=== PATIENT | male | born 1945 | race Caucasian/White ===

== ENCOUNTER 2022-03-27 13:43 | Inpatient (IN) | payer OTHER, MEDICAID ==
[2022-03-27 14:07] LABS: #Eosinphils 0.1 10x3/uL (0.0-0.5); #Monocytes 0.7 10x3/uL (0.0-1.1); #Neutrophils 7.2 10x3/uL (1.5-8.4); %Basophils 0.4 % (0.0-2.0); %Eosinophils 0.6 % (0.0-6.0); %Lymphocytes 19.6 % (18.0-47.0); %Monocytes 6.6 % (0.0-10.0); %Neutrophils 72.5 % (40.0-75.0); Hemoglobin 15.2 g/dL (13.5-17.5); Mean Corpuscular HGB CONC 34.2 g/dL (32.0-36.0); Mean Corpuscular Hemoglobin 32.8 pg (27.0-33.0); Mean Corpuscular Volume 95.7 fl (81.2-95.1); Mean Platelet Volume 9.7 fl (7.4-10.4); Platelet Count 169 10x3/uL (150-450); RBC Distribution Width 13.1 % (11.5-14.5); Red Blood Cell (RBC) Count 4.64 10x6/uL (4.32-5.72); White Blood Cell (WBC) Count 9.9 10x3/uL (3.5-10.5)
[2022-03-27] MEDS ORDERED: Lorazepam 2 MG/ML VIAL ONE ×3 (14:11→19:35)
[2022-03-27 14:21] LABS: ALT (SGPT) 16 U/L (8-55); AST (SGOT) 24 U/L (5-34); Acetaminophen Less than 10.0 mcg/mL (10.0-30.0); Albumin 4.3 g/dL (3.4-4.8); Alcohol Less than 10 mg/dL (Less than 10); Alkaline Phosphatase 57 U/L (40-110); Anion Gap 17 mmol/L (10-20); BUN (Urea Nitrogen) 29 mg/dL (8.4-25.7); CK (CPK) 136 U/L (30-200); Calc. Creatinine Clearance 0 mL/min (70-130); Carbon Dioxide 25 mmol/L (23-31); Chloride 103 mmol/L (98-107); Estimated GFR 68; Globulin 3.3 g/dL (2.4-3.5); Glucose 115 mg/dL (83-110); Lipase 14 U/L (8-78); Protein, Total 7.6 g/dL (5.8-8.1); Salicylate Less than 8.0 mg/dL (15.0-30.0); Sodium 141 mmol/L (136-145)
[2022-03-27 14:42] LABS: INR-International Normal Ratio 1.5; PTT 35.9 sec (22.0-33.0); Prothrombin Time 16.2 sec (9.5-12.1)
[2022-03-27] MEDS ORDERED: Ketamine 50 MG/ML (10ML VIAL) ONE (14:57)
[2022-03-27] MEDS ORDERED: Aspirin 325 MG TAB ONE (15:40)
[2022-03-27] MEDS ORDERED: hydrALAZINE 20 MG/ML VIAL SLOW IVP PRN (15:44)
[2022-03-27] MEDS ORDERED: Labetalol HCl 100 MG/20 ML VIAL SLOW IVP PRN (15:44)
[2022-03-27] MEDS ORDERED: Senokot S 8.6-50 MG TAB PO PRN (15:50)
[2022-03-27] MEDS ORDERED: Loperamide HCl 2 MG CAP PO PRN ×2 (15:50)
[2022-03-27] MEDS ORDERED: Ondansetron PF 4 MG/2 ML Vial IVP PRN (15:50)
[2022-03-27] MEDS ORDERED: Ondansetron ODT 4 MG TAB PO PRN (15:50)
[2022-03-27] MEDS ORDERED: Acetaminophen 650 MG Suppository PR PRN (15:50)
[2022-03-27] MEDS ORDERED: Bisacodyl 5 MG TAB PO PRN (15:50)
[2022-03-27 15:53] LABS: Bilirubin Neg (Negative); Blood, Urine 50 (Negative); Clarity Clear (Clear); Glucose, Urine (Dipstick) >=1000 mg/dL (Negative); Ketone, Urine 5 mg/dL (Negative); Leukocyte Negative (Negative); Nitrite Negative (Negative); Protein, Urine (Dipstick) Negative (Neg-Trace); Urobilinogen Normal mg/dL (Less than 2)
[2022-03-27 16:01] LABS: Amphetamine Not Detected (NotDetected); Bacteria/HPF None Seen HPF (None Seen); Barbiturates Screen Not Detected (NotDetected); Benzodiazepine Screen Not Detected (NotDetected); Cocaine Metabolite Screen Not Detected (NotDetected); Methadone Not Detected (NotDetected); Methamphetamine Not Detected (NotDetected); Opiate Screen Not Detected (NotDetected); Oxycodone Screen Not Detected (NotDetected); Phencyclidine (PCP) Not Detected (NotDetected); Squamous Epithelial None Seen HPF (0-3); THC/Cannabinoid Screen Not Detected (NotDetected); Tricyclic Screen Not Detected (NotDetected); WBC/HPF None Seen HPF (0-3)
[2022-03-27 16:40] LABS: Syphilis Antibody Nonreactive (Nonreactive); Syphilis Antibody Index 0.13 S/CO (<1.00 Non-Reactive)
[2022-03-27 17:06] LABS: SARS-CoV-2 NAA Rapid Test Not Detected (NotDetected)
[2022-03-27 19:02] LABS: Hemoglobin 14.6 g/dL (13.5-17.5); Platelet Count 143 10x3/uL (150-450)
[2022-03-27 19:11] LABS: Anion Gap 16 mmol/L (10-20); BUN (Urea Nitrogen) 26 mg/dL (8.4-25.7); Calc. Creatinine Clearance 0 mL/min (70-130); Carbon Dioxide 20 mmol/L (23-31); Chloride 107 mmol/L (98-107); Estimated GFR 90; Glucose 83 mg/dL (83-110); Potassium 3.9 mmol/L (3.5-5.1); Sodium 139 mmol/L (136-145)
[2022-03-27 19:13] LABS: Digoxin 0.43 ng/mL (0.8-2.0)
[2022-03-27 19:19] LABS: Troponin I Less than 0.010 ng/mL (< 0.028)
[2022-03-27 22:41] VITALS: BMI 21.3
[2022-03-27] MEDS ORDERED: Enoxaparin Sodium 40 MG/0.4 ML SYRINGE SC SCH (23:00)
[2022-03-27] MEDS ORDERED: Sacubitril 49 MG/Valsartan 51 MG TABLET PO SCH (23:00)
[2022-03-27] MEDS ORDERED: Carvedilol 6.25 MG TAB PO SCH (23:00)
[2022-03-27] MEDS ORDERED: Atorvastatin Calcium 40 MG TAB PO SCH (23:00)
[2022-03-27] MEDS ORDERED: Famotidine/PF 20 mg/2ml Vial SLOW IVP SCH (23:00)
[2022-03-27] MEDS ORDERED: Ziprasidone 20 MG VIAL IM SCH (23:15)
[2022-03-27] MEDS ORDERED: Sterile Water 10 ML ONE (23:45)
[2022-03-27 23:47] LABS: Troponin I Less than 0.010 ng/mL (< 0.028)
[2022-03-28] MEDS ORDERED: Ziprasidone 20 MG VIAL IM SCH ×2 (01:15→18:30)
[2022-03-28] MEDS ORDERED: Sterile Water 10 ML ONE ×2 (01:17)
[2022-03-28] MEDS ORDERED: Dextrose 5%-Lactated Ringers 1,000 ML IV SCH (01:45)
[2022-03-28 09:06] LABS: #Basophils 0.1 10x3/uL (0.0-0.2); #Eosinphils 0.1 10x3/uL (0.0-0.5); #Monocytes 0.8 10x3/uL (0.0-1.1); #Neutrophils 6.6 10x3/uL (1.5-8.4); %Basophils 0.6 % (0.0-2.0); %Eosinophils 0.8 % (0.0-6.0); %Lymphocytes 15.5 % (18.0-47.0); %Neutrophils 73.7 % (40.0-75.0); Hemoglobin 16.2 g/dL (13.5-17.5); Mean Corpuscular HGB CONC 34.5 g/dL (32.0-36.0); Mean Corpuscular Hemoglobin 32.5 pg (27.0-33.0); Mean Platelet Volume 9.4 fl (7.4-10.4); Platelet Count 139 10x3/uL (150-450); RBC Distribution Width 13.2 % (11.5-14.5); Red Blood Cell (RBC) Count 4.99 10x6/uL (4.32-5.72); White Blood Cell (WBC) Count 8.9 10x3/uL (3.5-10.5)
[2022-03-28 09:37] LABS: Anion Gap 14 mmol/L (10-20); BUN (Urea Nitrogen) 20 mg/dL (8.4-25.7); Calc. Creatinine Clearance 82 mL/min (70-130); Calcium 9.2 mg/dL (7.8-10.44); Carbon Dioxide 21 mmol/L (23-31); Chloride 110 mmol/L (98-107); Estimated GFR 92; Glucose 80 mg/dL (83-110); Potassium 4.4 mmol/L (3.5-5.1); Sodium 141 mmol/L (136-145)
[2022-03-28 09:43] LABS: Cardiac Risk 3.2 (Less than 4.5)
[2022-03-28] MEDS: Enoxaparin Sodium 40 MG/0.4 ML SYRINGE SC SCH (09:43)
[2022-03-28] MEDS: Digoxin 0.125 MG TAB PO SCH (09:43)
[2022-03-28] MEDS: Carvedilol 6.25 MG TAB PO SCH ×2 (09:43→17:26)
[2022-03-28] MEDS: Famotidine/PF 20 mg/2ml Vial SLOW IVP SCH ×2 (09:43→21:31)
[2022-03-28] MEDS: Aspirin 81 mg Enteric Coated Tablet PO SCH (09:43)
[2022-03-28] MEDS: Aspirin 300 MG Suppository PR SCH (09:43)
[2022-03-28] MEDS: Sacubitril 49 MG/Valsartan 51 MG TABLET PO SCH ×2 (09:47→21:31)
[2022-03-28] MEDS ORDERED: Iopamidol 370 76% 100 ML VIAL ONE (12:15)
[2022-03-28 15:54] LABS: ALT (SGPT) 14 U/L (8-55); AST (SGOT) 28 U/L (5-34); Albumin 3.8 g/dL (3.4-4.8); Alkaline Phosphatase 49 U/L (40-110); Bilirubin, Direct 0.5 mg/dL (0.1-0.3)
[2022-03-28] MEDS: Dextrose 5 % And 0.9 % NaCl 1,000 ML IV SCH (17:26)
[2022-03-28] MEDS ORDERED: Lorazepam 2 MG/ML VIAL SLOW IVP SCH (18:30)
[2022-03-28] MEDS ORDERED: Lorazepam 2 MG/ML VIAL SLOW IVP PRN (19:22)
[2022-03-28 19:51] LABS: Hemoglobin A1c 5.2 % (4.0-6.0)
[2022-03-28] MEDS ORDERED: levETIRAcetam in NS 500 MG in Premix Bag 1 BAG IVPB SCH (21:00)
[2022-03-28] MEDS: levETIRAcetam 500 MG/5 ML VIAL SLOW IVP SCH (21:31)
[2022-03-28] MEDS: Atorvastatin Calcium 40 MG TAB PO SCH (21:31)
[2022-03-29 06:49] LABS: #Eosinphils 0.1 10x3/uL (0.0-0.5); #Monocytes 0.6 10x3/uL (0.0-1.1); #Neutrophils 7.1 10x3/uL (1.5-8.4); %Basophils 0.4 % (0.0-2.0); %Eosinophils 1.1 % (0.0-6.0); %Lymphocytes 11.4 % (18.0-47.0); %Monocytes 7.2 % (0.0-10.0); %Neutrophils 79.7 % (40.0-75.0); Hemoglobin 14.6 g/dL (13.5-17.5); Mean Corpuscular Hemoglobin 32.7 pg (27.0-33.0); Mean Corpuscular Volume 93.3 fl (81.2-95.1); Mean Platelet Volume 9.4 fl (7.4-10.4); Platelet Count 143 10x3/uL (150-450); RBC Distribution Width 13.1 % (11.5-14.5); Red Blood Cell (RBC) Count 4.47 10x6/uL (4.32-5.72); White Blood Cell (WBC) Count 8.9 10x3/uL (3.5-10.5)
[2022-03-29 07:08] LABS: ALT (SGPT) 13 U/L (8-55); AST (SGOT) 39 U/L (5-34); Albumin 3.5 g/dL (3.4-4.8); Alkaline Phosphatase 50 U/L (40-110); Anion Gap 13 mmol/L (10-20); BUN (Urea Nitrogen) 16 mg/dL (8.4-25.7); Calc. Creatinine Clearance 84 mL/min (70-130); Calcium 8.9 mg/dL (7.8-10.44); Carbon Dioxide 21 mmol/L (23-31); Chloride 110 mmol/L (98-107); Estimated GFR 93; Globulin 2.8 g/dL (2.4-3.5); Glucose 88 mg/dL (83-110); Magnesium 1.7 mg/dL (1.6-2.6); Protein, Total 6.3 g/dL (5.8-8.1); Sodium 140 mmol/L (136-145)
[2022-03-29] MEDS: Enoxaparin Sodium 40 MG/0.4 ML SYRINGE SC SCH (09:03)
[2022-03-29] MEDS: Aspirin 81 mg Enteric Coated Tablet PO SCH (09:03)
[2022-03-29] MEDS: levETIRAcetam 500 MG/5 ML VIAL SLOW IVP SCH ×2 (09:03→22:08)
[2022-03-29] MEDS: Digoxin 0.125 MG TAB PO SCH (09:03)
[2022-03-29] MEDS: Dextrose 5 % And 0.9 % NaCl 1,000 ML IV SCH ×2 (09:03→09:29)
[2022-03-29] MEDS: Carvedilol 6.25 MG TAB PO SCH ×2 (09:03→17:24)
[2022-03-29] MEDS: Sacubitril 49 MG/Valsartan 51 MG TABLET PO SCH ×2 (09:04→23:40)
[2022-03-29] MEDS: Aspirin 300 MG Suppository PR SCH (09:04)
[2022-03-29] MEDS: Famotidine/PF 20 mg/2ml Vial SLOW IVP SCH ×2 (09:04→21:56)
[2022-03-29] MEDS ORDERED: Midazolam HCl 2 mg/2 ml Vial SLOW IVP SCH (13:45)
[2022-03-29] MEDS ORDERED: Ziprasidone 20 MG VIAL IM SCH (14:00)
[2022-03-29] MEDS ORDERED: Diazepam 10 MG/2 ML SYRINGE IVP SCH (15:00)
[2022-03-29] MEDS: Acetaminophen 325 MG TAB PO PRN (17:24)
[2022-03-29] MEDS: Nicotine 21 MG PATCH TD SCH (18:38)
[2022-03-29] MEDS ORDERED: levETIRAcetam 500 MG/5 ML VIAL ONE ×3 (21:46→21:47)
[2022-03-29] MEDS: Atorvastatin Calcium 40 MG TAB PO SCH (23:40)
[2022-03-30 04:51] LABS: #Basophils 0.1 10x3/uL (0.0-0.2); #Eosinphils 0.1 10x3/uL (0.0-0.5); #Monocytes 0.6 10x3/uL (0.0-1.1); #Neutrophils 5.5 10x3/uL (1.5-8.4); %Basophils 0.7 % (0.0-2.0); %Eosinophils 1.8 % (0.0-6.0); %Lymphocytes 13.5 % (18.0-47.0); %Monocytes 7.6 % (0.0-10.0); %Neutrophils 76.3 % (40.0-75.0); Hemoglobin 13.1 g/dL (13.5-17.5); Mean Corpuscular HGB CONC 34.8 g/dL (32.0-36.0); Mean Corpuscular Hemoglobin 32.8 pg (27.0-33.0); Mean Platelet Volume 9.8 fl (7.4-10.4); Platelet Count 143 10x3/uL (150-450); White Blood Cell (WBC) Count 7.3 10x3/uL (3.5-10.5)
[2022-03-30 05:04] LABS: ALT (SGPT) 15 U/L (8-55); AST (SGOT) 45 U/L (5-34); Albumin 3.2 g/dL (3.4-4.8); Alkaline Phosphatase 44 U/L (40-110); Anion Gap 12 mmol/L (10-20); BUN (Urea Nitrogen) 17 mg/dL (8.4-25.7); Calc. Creatinine Clearance 86 mL/min (70-130); Calcium 8.7 mg/dL (7.8-10.44); Carbon Dioxide 20 mmol/L (23-31); Chloride 113 mmol/L (98-107); Estimated GFR 93; Globulin 2.5 g/dL (2.4-3.5); Glucose 81 mg/dL (83-110); Magnesium 1.6 mg/dL (1.6-2.6); Potassium 3.9 mmol/L (3.5-5.1); Protein, Total 5.7 g/dL (5.8-8.1); Sodium 141 mmol/L (136-145)
[2022-03-30] MEDS: Dextrose 5 % And 0.9 % NaCl 1,000 ML IV SCH (05:46)
[2022-03-30] MEDS ORDERED: levETIRAcetam 500 MG/5 ML VIAL ONE (08:13)
[2022-03-30] MEDS ORDERED: Valproate Sodium 500 MG in Sodium Chloride 0.9% 100 ML IVPB SCH (09:00)
[2022-03-30] MEDS: LACOSAMIDE IVPB SCH ×2 (10:00→20:48)
[2022-03-30] MEDS: Famotidine/PF 20 mg/2ml Vial SLOW IVP SCH ×2 (10:00→20:16)
[2022-03-30] MEDS: Aspirin 81 mg Enteric Coated Tablet PO SCH (10:00)
[2022-03-30] MEDS: Digoxin 0.125 MG TAB PO SCH (10:00)
[2022-03-30] MEDS: SODIUM CHLORIDE IVPB SCH ×2 (10:00→20:48)
[2022-03-30] MEDS: Sacubitril 49 MG/Valsartan 51 MG TABLET PO SCH ×2 (10:00→20:16)
[2022-03-30] MEDS: ADMIXTURE FEE IVPB SCH ×2 (10:00→20:48)
[2022-03-30] MEDS: Enoxaparin Sodium 40 MG/0.4 ML SYRINGE SC SCH (10:01)
[2022-03-30] MEDS: Carvedilol 6.25 MG TAB PO SCH ×2 (10:01→16:49)
[2022-03-30] MEDS: Aspirin 300 MG Suppository PR SCH (10:01)
[2022-03-30] MEDS: cefTRIAXone\\ROCEPHIN 2 GM in Sodium Chloride 0.9% 100 ML IVPB SCH (11:35)
[2022-03-30] MEDS: Acetaminophen 325 MG TAB PO PRN ×2 (11:43→21:04)
[2022-03-30] MEDS: Diazepam 10 MG/2 ML SYRINGE IVP PRN (13:54)
[2022-03-30] MEDS: Nicotine 21 MG PATCH TD SCH (16:48)
[2022-03-30] MEDS: Atorvastatin Calcium 40 MG TAB PO SCH (20:16)
[2022-03-30] MEDS: Apixaban 5 MG TAB PO SCH (20:16)
[2022-03-31] MEDS: Diazepam 10 MG/2 ML SYRINGE IVP PRN (00:07)
[2022-03-31] MEDS: Dextrose 5 % And 0.9 % NaCl 1,000 ML IV SCH (02:45)
[2022-03-31] MEDS ORDERED: Ziprasidone 20 MG VIAL IM SCH (04:00)
[2022-03-31] MEDS ORDERED: Sterile Water 10 ML VIAL FS PRN (04:00)
[2022-03-31] MEDS ORDERED: Sterile Water 10 ML ONE (04:03)
[2022-03-31] MEDS ORDERED: Ziprasidone 20 MG VIAL ONE (04:04)
[2022-03-31] MEDS ORDERED: Ondansetron PF 4 MG/2 ML Vial IVP PRN (04:11)
[2022-03-31 06:30] LABS: #Eosinphils 0.2 10x3/uL (0.0-0.5); #Monocytes 0.5 10x3/uL (0.0-1.1); #Neutrophils 3.9 10x3/uL (1.5-8.4); %Basophils 0.6 % (0.0-2.0); %Eosinophils 3.3 % (0.0-6.0); %Lymphocytes 15.4 % (18.0-47.0); %Monocytes 9.1 % (0.0-10.0); %Neutrophils 71.4 % (40.0-75.0); Mean Corpuscular HGB CONC 34.1 g/dL (32.0-36.0); Mean Corpuscular Hemoglobin 31.9 pg (27.0-33.0); Mean Corpuscular Volume 93.4 fl (81.2-95.1); Mean Platelet Volume 9.9 fl (7.4-10.4); Platelet Count 119 10x3/uL (150-450); RBC Distribution Width 13.2 % (11.5-14.5); Red Blood Cell (RBC) Count 4.08 10x6/uL (4.32-5.72); White Blood Cell (WBC) Count 5.4 10x3/uL (3.5-10.5)
[2022-03-31 06:48] LABS: ALT (SGPT) 15 U/L (8-55); AST (SGOT) 39 U/L (5-34); Alkaline Phosphatase 42 U/L (40-110); Anion Gap 11 mmol/L (10-20); BUN (Urea Nitrogen) 13 mg/dL (8.4-25.7); CK (CPK) 396 U/L (30-200); Calc. Creatinine Clearance 88 mL/min (70-130); Calcium 8.5 mg/dL (7.8-10.44); Carbon Dioxide 23 mmol/L (23-31); Chloride 111 mmol/L (98-107); Estimated GFR 94; Globulin 2.6 g/dL (2.4-3.5); Glucose 91 mg/dL (83-110); Magnesium 1.5 mg/dL (1.6-2.6); Potassium 3.6 mmol/L (3.5-5.1); Protein, Total 5.6 g/dL (5.8-8.1); Sodium 141 mmol/L (136-145)
[2022-03-31] MEDS: Apixaban 5 MG TAB PO SCH ×2 (09:24→21:30)
[2022-03-31] MEDS: Aspirin 300 MG Suppository PR SCH (09:24)
[2022-03-31] MEDS: Aspirin 81 mg Enteric Coated Tablet PO SCH (09:24)
[2022-03-31] MEDS: Carvedilol 6.25 MG TAB PO SCH ×2 (09:24→19:18)
[2022-03-31] MEDS: SODIUM CHLORIDE IVPB SCH ×2 (09:25→21:28)
[2022-03-31] MEDS: LACOSAMIDE IVPB SCH ×2 (09:25→21:28)
[2022-03-31] MEDS: Famotidine/PF 20 mg/2ml Vial SLOW IVP SCH ×2 (09:25→21:30)
[2022-03-31] MEDS: Sacubitril 49 MG/Valsartan 51 MG TABLET PO SCH ×2 (09:25→21:30)
[2022-03-31] MEDS: Digoxin 0.125 MG TAB PO SCH (09:25)
[2022-03-31] MEDS: ADMIXTURE FEE IVPB SCH ×2 (09:25→21:28)
[2022-03-31] MEDS ORDERED: Iopamidol 300 61% 100 ML VIAL FS ONE (10:20)
[2022-03-31] MEDS: cefTRIAXone\\ROCEPHIN 2 GM in Sodium Chloride 0.9% 100 ML IVPB SCH (11:00)
[2022-03-31] MEDS: Azithromycin 250 MG TAB PO SCH (11:00)
[2022-03-31] MEDS: Nicotine 21 MG PATCH TD SCH (19:17)
[2022-03-31] MEDS: Atorvastatin Calcium 40 MG TAB PO SCH (21:29)
[2022-04-01] MEDS: Dextrose 5 % And 0.9 % NaCl 1,000 ML IV SCH ×2 (01:22→16:57)
[2022-04-01] MEDS: Acetaminophen 325 MG TAB PO PRN (02:56)
[2022-04-01] MEDS: Guaifenesin DM 100-10/5 ML UDCUP PO PRN (03:36)
[2022-04-01] MEDS ORDERED: diphenhydrAMINE 50 MG CAP PO SCH (04:30)
[2022-04-01 06:35] LABS: Potassium 3.6 mmol/L (3.5-5.1); Sodium 138 mmol/L (136-145)
[2022-04-01 06:36] LABS: ALT (SGPT) 18 U/L (8-55); AST (SGOT) 34 U/L (5-34); Albumin 3.1 g/dL (3.4-4.8); Alkaline Phosphatase 43 U/L (40-110); Anion Gap 10 mmol/L (10-20); BUN (Urea Nitrogen) 9 mg/dL (8.4-25.7); Bilirubin, Total 0.8 mg/dL (0.2-1.2); Calc. Creatinine Clearance 84 mL/min (70-130); Calcium 8.8 mg/dL (7.8-10.44); Carbon Dioxide 23 mmol/L (23-31); Chloride 109 mmol/L (98-107); Estimated GFR 93; Globulin 2.6 g/dL (2.4-3.5); Glucose 101 mg/dL (83-110); Magnesium 1.4 mg/dL (1.6-2.6); Protein, Total 5.7 g/dL (5.8-8.1)
[2022-04-01 06:47] LABS: #Eosinphils 0.2 10x3/uL (0.0-0.5); #Monocytes 0.5 10x3/uL (0.0-1.1); %Basophils 0.7 % (0.0-2.0); %Lymphocytes 17.9 % (18.0-47.0); %Monocytes 9.4 % (0.0-10.0); %Neutrophils 68.7 % (40.0-75.0); Hemoglobin 13.3 g/dL (13.5-17.5); Mean Corpuscular HGB CONC 34.4 g/dL (32.0-36.0); Mean Corpuscular Hemoglobin 32.2 pg (27.0-33.0); Mean Corpuscular Volume 93.7 fl (81.2-95.1); Mean Platelet Volume 10.2 fl (7.4-10.4); Platelet Count 138 10x3/uL (150-450); RBC Distribution Width 13.3 % (11.5-14.5); Red Blood Cell (RBC) Count 4.13 10x6/uL (4.32-5.72); White Blood Cell (WBC) Count 5.8 10x3/uL (3.5-10.5)
[2022-04-01] MEDS ORDERED: Lorazepam 2 MG/ML VIAL SLOW IVP PRN (10:47)
[2022-04-01] MEDS ORDERED: Haloperidol Lactate 5 MG/ML VIAL ONE (10:56)
[2022-04-01] MEDS: Aspirin 81 mg Enteric Coated Tablet PO SCH (10:58)
[2022-04-01] MEDS: Carvedilol 6.25 MG TAB PO SCH ×2 (10:58→15:39)
[2022-04-01] MEDS: Sacubitril 49 MG/Valsartan 51 MG TABLET PO SCH ×2 (10:58→23:01)
[2022-04-01] MEDS: Famotidine/PF 20 mg/2ml Vial SLOW IVP SCH ×2 (10:58→21:36)
[2022-04-01] MEDS: Digoxin 0.125 MG TAB PO SCH (10:58)
[2022-04-01] MEDS: Apixaban 5 MG TAB PO SCH ×2 (10:59→23:01)
[2022-04-01] MEDS: Azithromycin 250 MG TAB PO SCH (10:59)
[2022-04-01] MEDS: LACOSAMIDE IVPB SCH ×2 (11:00→21:36)
[2022-04-01] MEDS: SODIUM CHLORIDE IVPB SCH ×2 (11:00→21:36)
[2022-04-01] MEDS: ADMIXTURE FEE IVPB SCH ×2 (11:00→21:36)
[2022-04-01] MEDS ORDERED: Haloperidol Lactate 5 MG/ML VIAL IM SCH (11:00)
[2022-04-01] MEDS: Aspirin 300 MG Suppository PR SCH (11:46)
[2022-04-01] MEDS: Nicotine 21 MG PATCH TD SCH (15:39)
[2022-04-01] MEDS: Atorvastatin Calcium 40 MG TAB PO SCH (23:01)
[2022-04-02] MEDS: Atorvastatin Calcium 40 MG TAB PO SCH ×2 (02:34→19:45)
[2022-04-02] MEDS: Apixaban 5 MG TAB PO SCH ×3 (02:34→19:45)
[2022-04-02] MEDS: Sacubitril 49 MG/Valsartan 51 MG TABLET PO SCH ×3 (02:34→19:51)
[2022-04-02] MEDS: Dextrose 5 % And 0.9 % NaCl 1,000 ML IV SCH (02:42)
[2022-04-02 04:57] LABS: Platelet Count 138 10x3/uL (150-450)
[2022-04-02 05:02] LABS: #Basophils 0.1 10x3/uL (0.0-0.2); #Eosinphils 0.1 10x3/uL (0.0-0.5); #Monocytes 0.5 10x3/uL (0.0-1.1); #Neutrophils 4.1 10x3/uL (1.5-8.4); %Basophils 0.9 % (0.0-2.0); %Eosinophils 2.5 % (0.0-6.0); %Lymphocytes 15.8 % (18.0-47.0); %Monocytes 8.8 % (0.0-10.0); %Neutrophils 71.8 % (40.0-75.0); Hemoglobin 13.7 g/dL (13.5-17.5); Mean Corpuscular HGB CONC 34.3 g/dL (32.0-36.0); Mean Corpuscular Hemoglobin 32.2 pg (27.0-33.0); Mean Corpuscular Volume 93.7 fl (81.2-95.1); Mean Platelet Volume 9.9 fl (7.4-10.4); RBC Distribution Width 13.4 % (11.5-14.5); Red Blood Cell (RBC) Count 4.26 10x6/uL (4.32-5.72); White Blood Cell (WBC) Count 5.7 10x3/uL (3.5-10.5)
[2022-04-02 05:23] LABS: Chloride 111 mmol/L (98-107); Potassium 3.6 mmol/L (3.5-5.1); Sodium 141 mmol/L (136-145)
[2022-04-02 05:26] LABS: ALT (SGPT) 16 U/L (8-55); AST (SGOT) 27 U/L (5-34); Albumin 2.9 g/dL (3.4-4.8); Alkaline Phosphatase 40 U/L (40-110); Anion Gap 10 mmol/L (10-20); BUN (Urea Nitrogen) 6 mg/dL (8.4-25.7); Bilirubin, Total 0.8 mg/dL (0.2-1.2); Calc. Creatinine Clearance 87 mL/min (70-130); Calcium 8.3 mg/dL (7.8-10.44); Carbon Dioxide 24 mmol/L (23-31); Estimated GFR 94; Globulin 2.4 g/dL (2.4-3.5); Glucose 122 mg/dL (83-110); Magnesium 1.4 mg/dL (1.6-2.6); Protein, Total 5.3 g/dL (5.8-8.1)
[2022-04-02] MEDS: Famotidine/PF 20 mg/2ml Vial SLOW IVP SCH ×2 (08:26→19:45)
[2022-04-02] MEDS: Aspirin 300 MG Suppository PR SCH (08:27)
[2022-04-02] MEDS: Carvedilol 6.25 MG TAB PO SCH ×2 (08:27→16:48)
[2022-04-02] MEDS: Aspirin 81 mg Enteric Coated Tablet PO SCH (08:27)
[2022-04-02] MEDS: Digoxin 0.125 MG TAB PO SCH (08:27)
[2022-04-02] MEDS: LACOSAMIDE IVPB SCH ×2 (10:21→19:45)
[2022-04-02] MEDS: ADMIXTURE FEE IVPB SCH ×2 (10:21→19:45)
[2022-04-02] MEDS: SODIUM CHLORIDE IVPB SCH ×2 (10:21→19:45)
[2022-04-02] MEDS: Guaifenesin DM 100-10/5 ML UDCUP PO PRN ×2 (11:49→19:44)
[2022-04-02] MEDS: Nicotine 21 MG PATCH TD SCH (16:49)
[2022-04-02] MEDS ORDERED: Nitroglycerin 2% Ointment 1 INCH/1 GM Packet TOP SCH (22:15)
[2022-04-03] MEDS: Guaifenesin DM 100-10/5 ML UDCUP PO PRN (01:24)
[2022-04-03 02:21] LABS: #Basophils 0.1 10x3/uL (0.0-0.2); #Eosinphils 0.2 10x3/uL (0.0-0.5); #Monocytes 0.6 10x3/uL (0.0-1.1); #Neutrophils 4.7 10x3/uL (1.5-8.4); %Basophils 0.7 % (0.0-2.0); %Eosinophils 2.5 % (0.0-6.0); %Lymphocytes 19.2 % (18.0-47.0); %Monocytes 8.4 % (0.0-10.0); %Neutrophils 68.9 % (40.0-75.0); Hemoglobin 13.1 g/dL (13.5-17.5); Mean Corpuscular HGB CONC 34.9 g/dL (32.0-36.0); Mean Corpuscular Hemoglobin 32.5 pg (27.0-33.0); Mean Corpuscular Volume 93.1 fl (81.2-95.1); Mean Platelet Volume 9.7 fl (7.4-10.4); Platelet Count 143 10x3/uL (150-450); RBC Distribution Width 13.2 % (11.5-14.5); Red Blood Cell (RBC) Count 4.03 10x6/uL (4.32-5.72); White Blood Cell (WBC) Count 6.9 10x3/uL (3.5-10.5)
[2022-04-03 03:07] LABS: ALT (SGPT) 20 U/L (8-55); AST (SGOT) 28 U/L (5-34); Albumin 3.2 g/dL (3.4-4.8); Alkaline Phosphatase 44 U/L (40-110); Anion Gap 13 mmol/L (10-20); BUN (Urea Nitrogen) 12 mg/dL (8.4-25.7); Bilirubin, Total 0.9 mg/dL (0.2-1.2); Calc. Creatinine Clearance 84 mL/min (70-130); Calcium 8.8 mg/dL (7.8-10.44); Carbon Dioxide 24 mmol/L (23-31); Chloride 104 mmol/L (98-107); Estimated GFR 93; Globulin 2.6 g/dL (2.4-3.5); Glucose 113 mg/dL (83-110); Magnesium 1.3 mg/dL (1.6-2.6); Potassium 3.6 mmol/L (3.5-5.1); Protein, Total 5.8 g/dL (5.8-8.1); Sodium 137 mmol/L (136-145)
[2022-04-03] MEDS ORDERED: Furosemide 20 MG/2 ML VIAL SLOW IVP SCH (04:15)
[2022-04-03] MEDS ORDERED: Furosemide 40 MG TAB PO SCH (04:15)
[2022-04-03] MEDS: diphenhydrAMINE 25 MG CAP PO PRN (04:20)
[2022-04-03] MEDS: Acetaminophen 325 MG TAB PO PRN ×2 (05:37→18:04)
[2022-04-03] MEDS: Aspirin 81 mg Enteric Coated Tablet PO SCH (08:37)
[2022-04-03] MEDS: Sacubitril 49 MG/Valsartan 51 MG TABLET PO SCH ×2 (08:37→20:25)
[2022-04-03] MEDS: Carvedilol 6.25 MG TAB PO SCH ×2 (08:37→16:14)
[2022-04-03] MEDS: Digoxin 0.125 MG TAB PO SCH (08:37)
[2022-04-03] MEDS: Apixaban 5 MG TAB PO SCH ×2 (08:37→20:25)
[2022-04-03] MEDS: Famotidine/PF 20 mg/2ml Vial SLOW IVP SCH ×2 (08:38→21:13)
[2022-04-03] MEDS: Aspirin 300 MG Suppository PR SCH (08:38)
[2022-04-03] MEDS: Nicotine 21 MG PATCH TD SCH (08:38)
[2022-04-03] MEDS: LACOSAMIDE IVPB SCH ×2 (08:38→21:13)
[2022-04-03] MEDS: SODIUM CHLORIDE IVPB SCH ×2 (08:38→21:13)
[2022-04-03] MEDS: ADMIXTURE FEE IVPB SCH ×2 (08:38→21:13)
[2022-04-03] MEDS: Atorvastatin Calcium 40 MG TAB PO SCH (20:25)
[2022-04-04 05:14] LABS: #Basophils 0.1 10x3/uL (0.0-0.2); #Eosinphils 0.3 10x3/uL (0.0-0.5); #Monocytes 0.5 10x3/uL (0.0-1.1); #Neutrophils 2.9 10x3/uL (1.5-8.4); %Lymphocytes 28.4 % (18.0-47.0); %Monocytes 9.9 % (0.0-10.0); %Neutrophils 55.5 % (40.0-75.0); Hemoglobin 13.3 g/dL (13.5-17.5); Mean Corpuscular HGB CONC 35.1 g/dL (32.0-36.0); Mean Corpuscular Hemoglobin 32.5 pg (27.0-33.0); Mean Corpuscular Volume 92.7 fl (81.2-95.1); Mean Platelet Volume 10.2 fl (7.4-10.4); Platelet Count 152 10x3/uL (150-450); RBC Distribution Width 13.2 % (11.5-14.5); Red Blood Cell (RBC) Count 4.09 10x6/uL (4.32-5.72); White Blood Cell (WBC) Count 5.2 10x3/uL (3.5-10.5)
[2022-04-04 05:26] LABS: ALT (SGPT) 18 U/L (8-55); AST (SGOT) 25 U/L (5-34); Albumin 3.1 g/dL (3.4-4.8); Alkaline Phosphatase 42 U/L (40-110); Anion Gap 11 mmol/L (10-20); BUN (Urea Nitrogen) 13 mg/dL (8.4-25.7); Bilirubin, Total 0.9 mg/dL (0.2-1.2); Calc. Creatinine Clearance 86 mL/min (70-130); Calcium 9.1 mg/dL (7.8-10.44); Carbon Dioxide 29 mmol/L (23-31); Chloride 103 mmol/L (98-107); Estimated GFR 93; Globulin 2.6 g/dL (2.4-3.5); Glucose 80 mg/dL (83-110); Magnesium 1.3 mg/dL (1.6-2.6); Potassium 3.1 mmol/L (3.5-5.1); Protein, Total 5.7 g/dL (5.8-8.1); Sodium 140 mmol/L (136-145)
[2022-04-04] MEDS: Acetaminophen 325 MG TAB PO PRN ×2 (06:30→22:58)
[2022-04-04] MEDS ORDERED: Potassium Chloride 20 MEQ TAB PO SCH (09:15)
[2022-04-04] MEDS: ADMIXTURE FEE IVPB SCH (09:40)
[2022-04-04] MEDS: SODIUM CHLORIDE IVPB SCH (09:40)
[2022-04-04] MEDS: LACOSAMIDE IVPB SCH (09:40)
[2022-04-04] MEDS: Aspirin 81 mg Enteric Coated Tablet PO SCH (09:41)
[2022-04-04] MEDS: Carvedilol 6.25 MG TAB PO SCH ×2 (09:41→16:57)
[2022-04-04] MEDS: Apixaban 5 MG TAB PO SCH ×2 (09:41→22:15)
[2022-04-04] MEDS: Digoxin 0.125 MG TAB PO SCH (09:41)
[2022-04-04] MEDS: Potassium Chloride 20 MEQ TAB PO SCH ×2 (09:41→14:12)
[2022-04-04] MEDS: Sacubitril 49 MG/Valsartan 51 MG TABLET PO SCH ×2 (10:10→22:15)
[2022-04-04] MEDS: Magnesium 2 GM/50 ML(in water) 4 GM in Premix Bag 1 BAG IVPB SCH ×2 (10:10→10:55)
[2022-04-04] MEDS: Famotidine/PF 20 mg/2ml Vial SLOW IVP SCH ×2 (10:10→22:00)
[2022-04-04] MEDS: Aspirin 300 MG Suppository PR SCH (10:10)
[2022-04-04] MEDS: Nicotine 21 MG PATCH TD SCH (16:57)
[2022-04-04] MEDS: Atorvastatin Calcium 40 MG TAB PO SCH (22:15)
[2022-04-05] MEDS: ADMIXTURE FEE IVPB SCH
[2022-04-05] MEDS: LACOSAMIDE IVPB SCH
[2022-04-05] MEDS: SODIUM CHLORIDE IVPB SCH
[2022-04-05] MEDS: Lacosamide 100 MG in Sodium Chloride 0.9% 50 ML IVPB SCH ×2 (01:05→14:24)
[2022-04-05] MEDS: Aspirin 81 mg Enteric Coated Tablet PO SCH (09:50)
[2022-04-05] MEDS: Apixaban 5 MG TAB PO SCH ×2 (09:50→22:43)
[2022-04-05] MEDS: Sacubitril 49 MG/Valsartan 51 MG TABLET PO SCH ×2 (09:50→22:43)
[2022-04-05] MEDS: Carvedilol 6.25 MG TAB PO SCH ×2 (09:50→17:29)
[2022-04-05] MEDS: Digoxin 0.125 MG TAB PO SCH (09:51)
[2022-04-05] MEDS: Famotidine/PF 20 mg/2ml Vial SLOW IVP SCH ×2 (09:51→22:43)
[2022-04-05 10:00] LABS: Anion Gap 13 mmol/L (10-20); BUN (Urea Nitrogen) 14 mg/dL (8.4-25.7); Calc. Creatinine Clearance 80 mL/min (70-130); Calcium 9.4 mg/dL (7.8-10.44); Carbon Dioxide 29 mmol/L (23-31); Chloride 103 mmol/L (98-107); Estimated GFR 91; Glucose 100 mg/dL (83-110); Potassium 3.9 mmol/L (3.5-5.1); Sodium 141 mmol/L (136-145)
[2022-04-05] MEDS: Aspirin 300 MG Suppository PR SCH (10:02)
[2022-04-05 10:15] LABS: Magnesium 1.6 mg/dL (1.6-2.6)
[2022-04-05] MEDS: Nicotine 21 MG PATCH TD SCH (17:29)
[2022-04-05] MEDS: Atorvastatin Calcium 40 MG TAB PO SCH (22:43)
[2022-04-06] MEDS: Lacosamide 100 MG in Sodium Chloride 0.9% 50 ML IVPB SCH ×2 (02:45→16:00)
[2022-04-06] MEDS: diphenhydrAMINE 25 MG CAP PO PRN (03:41)
[2022-04-06] MEDS: Acetaminophen 325 MG TAB PO PRN ×2 (03:47→18:19)
[2022-04-06] MEDS: Aspirin 81 mg Enteric Coated Tablet PO SCH (09:23)
[2022-04-06] MEDS: Magnesium 2 GM/50 ML(in water) 2 GM in Premix Bag 1 BAG IVPB SCH ×2 (09:23→15:35)
[2022-04-06] MEDS: Carvedilol 6.25 MG TAB PO SCH ×2 (09:23→18:19)
[2022-04-06] MEDS: Famotidine/PF 20 mg/2ml Vial SLOW IVP SCH ×2 (09:24→21:57)
[2022-04-06] MEDS: Digoxin 0.125 MG TAB PO SCH (09:24)
[2022-04-06] MEDS: Sacubitril 49 MG/Valsartan 51 MG TABLET PO SCH ×2 (09:24→21:58)
[2022-04-06] MEDS: Apixaban 5 MG TAB PO SCH ×3 (09:24→22:29)
[2022-04-06] MEDS: Aspirin 300 MG Suppository PR SCH (09:24)
[2022-04-06] MEDS ORDERED: Magnesium 2 GM/50 ML(in water) 2 GM in Premix Bag 1 BAG IVPB SCH (16:00)
[2022-04-06] MEDS ORDERED: Polyvinyl Alcohol 1.4%/Povidone 0.6% Opth Drops EA EYE PRN (18:18)
[2022-04-06] MEDS: Nicotine 21 MG PATCH TD SCH (18:20)
[2022-04-06] MEDS: Guaifenesin DM 100-10/5 ML UDCUP PO PRN (21:57)
[2022-04-06] MEDS: Atorvastatin Calcium 40 MG TAB PO SCH (21:58)
[2022-04-06] MEDS: Chlorhexidine Gluconate 15 ML UDCUP SSP SCH (22:28)
[2022-04-07] MEDS: Lacosamide 100 MG in Sodium Chloride 0.9% 50 ML IVPB SCH (02:40)
[2022-04-07 05:09] LABS: Anion Gap 9 mmol/L (10-20); BUN (Urea Nitrogen) 19 mg/dL (8.4-25.7); Calc. Creatinine Clearance 85 mL/min (70-130); Calcium 8.8 mg/dL (7.8-10.44); Carbon Dioxide 29 mmol/L (23-31); Chloride 106 mmol/L (98-107); Estimated GFR 93; Glucose 76 mg/dL (83-110); Potassium 4.1 mmol/L (3.5-5.1); Sodium 140 mmol/L (136-145)
[2022-04-07] MEDS: Sacubitril 49 MG/Valsartan 51 MG TABLET PO SCH ×2 (09:28→21:14)
[2022-04-07] MEDS: Digoxin 0.125 MG TAB PO SCH (09:28)
[2022-04-07] MEDS: Chlorhexidine Gluconate 15 ML UDCUP SSP SCH ×2 (09:28→21:16)
[2022-04-07] MEDS: Famotidine/PF 20 mg/2ml Vial SLOW IVP SCH ×2 (09:28→21:15)
[2022-04-07] MEDS: Carvedilol 6.25 MG TAB PO SCH ×2 (09:28→17:39)
[2022-04-07] MEDS: Aspirin 81 mg Enteric Coated Tablet PO SCH (09:28)
[2022-04-07] MEDS: Apixaban 5 MG TAB PO SCH ×2 (09:28→21:14)
[2022-04-07] MEDS: Aspirin 300 MG Suppository PR SCH (09:29)
[2022-04-07] MEDS: Fluticasone Propionate Nasal Spray 16 gm Bottle NASAL SCH (09:29)
[2022-04-07] MEDS: Sodium Chloride 0.65% Nasal 44 ML BOT EA NARE SCH (09:29)
[2022-04-07] MEDS: Mometasone/Formoterol 60 PUFF AER INH SCH ×2 (10:15→19:10)
[2022-04-07] MEDS: Guaifenesin DM 100-10/5 ML UDCUP PO PRN (10:42)
[2022-04-07] MEDS: Acetaminophen 325 MG TAB PO PRN ×2 (14:26→21:14)
[2022-04-07] MEDS: Lorazepam 1 MG TAB PO PRN (15:15)
[2022-04-07] MEDS: Nicotine 21 MG PATCH TD SCH (17:39)
[2022-04-07] MEDS ORDERED: Lacosamide 50 mg Tablet PO SCH (21:00)
[2022-04-07] MEDS: Atorvastatin Calcium 40 MG TAB PO SCH (21:15)
[2022-04-08] MEDS: Digoxin 0.125 MG TAB PO SCH (08:40)
[2022-04-08] MEDS: Mometasone/Formoterol 60 PUFF AER INH SCH ×2 (08:40→17:10)
[2022-04-08] MEDS: Apixaban 5 MG TAB PO SCH ×2 (08:40→20:06)
[2022-04-08] MEDS: Carvedilol 6.25 MG TAB PO SCH ×2 (08:40→17:06)
[2022-04-08] MEDS: Fluticasone Propionate Nasal Spray 16 gm Bottle NASAL SCH (08:40)
[2022-04-08] MEDS: Aspirin 81 mg Enteric Coated Tablet PO SCH (08:40)
[2022-04-08] MEDS: Famotidine/PF 20 mg/2ml Vial SLOW IVP SCH ×2 (08:40→20:06)
[2022-04-08] MEDS: Chlorhexidine Gluconate 15 ML UDCUP SSP SCH ×2 (08:40→20:11)
[2022-04-08] MEDS: Sacubitril 49 MG/Valsartan 51 MG TABLET PO SCH ×2 (08:40→20:10)
[2022-04-08] MEDS: Sodium Chloride 0.65% Nasal 44 ML BOT EA NARE SCH (08:41)
[2022-04-08] MEDS ORDERED: Artificial Tear Sol 15 ML BOT EA EYE PRN (10:34)
[2022-04-08] MEDS ORDERED: Lidocaine 5% Patch TD SCH (11:00)
[2022-04-08] MEDS: Nicotine 21 MG PATCH TD SCH (17:09)
[2022-04-08] MEDS: Lorazepam 1 MG TAB PO PRN (17:20)
[2022-04-08] MEDS: Atorvastatin Calcium 40 MG TAB PO SCH (20:06)
[2022-04-08] MEDS: Acetaminophen 325 MG TAB PO PRN (20:07)
[2022-04-08] MEDS ORDERED: Transdermal Patch Removal TOP SCH (23:00)
[2022-04-09] MEDS: Sacubitril 49 MG/Valsartan 51 MG TABLET PO SCH ×2 (08:46→21:11)
[2022-04-09] MEDS: Digoxin 0.125 MG TAB PO SCH (08:46)
[2022-04-09] MEDS: Famotidine/PF 20 mg/2ml Vial SLOW IVP SCH ×2 (08:46→21:12)
[2022-04-09] MEDS: Carvedilol 6.25 MG TAB PO SCH ×2 (08:46→16:38)
[2022-04-09] MEDS: Acetaminophen 325 MG TAB PO PRN (08:46)
[2022-04-09] MEDS: Apixaban 5 MG TAB PO SCH ×2 (08:46→21:12)
[2022-04-09] MEDS: Aspirin 81 mg Enteric Coated Tablet PO SCH (08:46)
[2022-04-09] MEDS: Chlorhexidine Gluconate 15 ML UDCUP SSP SCH ×2 (08:47→21:12)
[2022-04-09] MEDS: Diclofenac 1% 100 GM GEL TP SCH ×3 (08:50→16:38)
[2022-04-09] MEDS ORDERED: Lidocaine 5% Patch TD SCH (09:00)
[2022-04-09] MEDS: Fluticasone Propionate Nasal Spray 16 gm Bottle NASAL SCH (09:27)
[2022-04-09] MEDS: Mometasone/Formoterol 60 PUFF AER INH SCH ×2 (09:27→16:38)
[2022-04-09] MEDS: Sodium Chloride 0.65% Nasal 44 ML BOT EA NARE SCH (09:28)
[2022-04-09] MEDS: Lorazepam 1 MG TAB PO PRN (13:28)
[2022-04-09] MEDS: Nicotine 21 MG PATCH TD SCH (16:38)
[2022-04-09] MEDS: Transdermal Patch Removal TOP SCH (21:00)
[2022-04-09] MEDS: Atorvastatin Calcium 40 MG TAB PO SCH (21:12)
[2022-04-10] MEDS: Mometasone/Formoterol 60 PUFF AER INH SCH ×2 (08:26→19:24)
[2022-04-10] MEDS ORDERED: Cyclobenzaprine 10 MG TAB PO SCH (08:30)
[2022-04-10] MEDS ORDERED: Ziprasidone 20 MG VIAL IM SCH (10:00)
[2022-04-10] MEDS: Fluticasone Propionate Nasal Spray 16 gm Bottle NASAL SCH (10:50)
[2022-04-10] MEDS: Carvedilol 6.25 MG TAB PO SCH ×3 (10:54→21:17)
[2022-04-10] MEDS: Apixaban 5 MG TAB PO SCH ×3 (10:54→21:18)
[2022-04-10] MEDS: Digoxin 0.125 MG TAB PO SCH ×2 (10:54→11:11)
[2022-04-10] MEDS: Chlorhexidine Gluconate 15 ML UDCUP SSP SCH (10:54)
[2022-04-10] MEDS: Sacubitril 49 MG/Valsartan 51 MG TABLET PO SCH ×3 (10:54→21:23)
[2022-04-10] MEDS: Aspirin 81 mg Enteric Coated Tablet PO SCH ×2 (10:54→11:11)
[2022-04-10] MEDS: Lidocaine 5% Patch TD SCH (10:55)
[2022-04-10] MEDS: Diclofenac 1% 100 GM GEL TP SCH ×6 (10:55→21:19)
[2022-04-10] MEDS: Famotidine/PF 20 mg/2ml Vial SLOW IVP SCH ×2 (11:11→21:19)
[2022-04-10] MEDS: Sodium Chloride 0.65% Nasal 44 ML BOT EA NARE SCH (11:11)
[2022-04-10] MEDS: Nicotine 21 MG PATCH TD SCH (16:38)
[2022-04-10] MEDS: Guaifenesin DM 100-10/5 ML UDCUP PO PRN (20:06)
[2022-04-10] MEDS: Atorvastatin Calcium 40 MG TAB PO SCH (21:18)
[2022-04-11] MEDS: Chlorhexidine Gluconate 15 ML UDCUP SSP SCH ×3 (01:34→21:12)
[2022-04-11] MEDS: Transdermal Patch Removal TOP SCH ×2 (01:34→18:21)
[2022-04-11] MEDS: Mometasone/Formoterol 60 PUFF AER INH SCH ×2 (06:36→17:41)
[2022-04-11] MEDS: Lidocaine 5% Patch TD SCH (09:30)
[2022-04-11] MEDS: Fluticasone Propionate Nasal Spray 16 gm Bottle NASAL SCH (09:34)
[2022-04-11] MEDS: Digoxin 0.125 MG TAB PO SCH (09:36)
[2022-04-11] MEDS: Famotidine/PF 20 mg/2ml Vial SLOW IVP SCH ×2 (09:36→21:13)
[2022-04-11] MEDS: Carvedilol 6.25 MG TAB PO SCH ×2 (09:36→18:20)
[2022-04-11] MEDS: Aspirin 81 mg Enteric Coated Tablet PO SCH (09:36)
[2022-04-11] MEDS: Apixaban 5 MG TAB PO SCH ×2 (09:37→21:12)
[2022-04-11] MEDS: Sacubitril 49 MG/Valsartan 51 MG TABLET PO SCH ×2 (09:37→21:13)
[2022-04-11] MEDS: Sodium Chloride 0.65% Nasal 44 ML BOT EA NARE SCH (09:55)
[2022-04-11] MEDS: Diclofenac 1% 100 GM GEL TP SCH ×4 (09:55→21:13)
[2022-04-11] MEDS: NICOTINE 2 MG PO PRN (16:14)
[2022-04-11] MEDS: Nicotine 21 MG PATCH TD SCH (18:17)
[2022-04-11] MEDS: Atorvastatin Calcium 40 MG TAB PO SCH (21:12)
[2022-04-12] MEDS: Mometasone/Formoterol 60 PUFF AER INH SCH ×2 (07:55→19:15)
[2022-04-12] MEDS: Sacubitril 49 MG/Valsartan 51 MG TABLET PO SCH ×2 (09:00→23:19)
[2022-04-12] MEDS: Aspirin 81 mg Enteric Coated Tablet PO SCH (09:33)
[2022-04-12] MEDS: Lidocaine 5% Patch TD SCH ×2 (09:33→10:50)
[2022-04-12] MEDS: Apixaban 5 MG TAB PO SCH ×2 (09:33→23:17)
[2022-04-12] MEDS: Carvedilol 6.25 MG TAB PO SCH ×2 (09:33→23:19)
[2022-04-12] MEDS: Famotidine/PF 20 mg/2ml Vial SLOW IVP SCH ×2 (09:34→23:19)
[2022-04-12] MEDS: Digoxin 0.125 MG TAB PO SCH (09:34)
[2022-04-12] MEDS: Fluticasone Propionate Nasal Spray 16 gm Bottle NASAL SCH (09:34)
[2022-04-12] MEDS: NICOTINE 2 MG PO PRN (09:35)
[2022-04-12] MEDS: Sodium Chloride 0.65% Nasal 44 ML BOT EA NARE SCH (10:49)
[2022-04-12] MEDS: Diclofenac 1% 100 GM GEL TP SCH ×4 (10:49→23:18)
[2022-04-12] MEDS: Chlorhexidine Gluconate 15 ML UDCUP SSP SCH ×2 (10:49→23:17)
[2022-04-12] MEDS: Atorvastatin Calcium 40 MG TAB PO SCH (23:17)
[2022-04-12] MEDS: Transdermal Patch Removal TOP SCH (23:19)
[2022-04-12] MEDS: Nicotine 21 MG PATCH TD SCH (23:20)
[2022-04-13] MEDS: Mometasone/Formoterol 60 PUFF AER INH SCH ×2 (08:22→18:50)
[2022-04-13] MEDS: Carvedilol 6.25 MG TAB PO SCH ×2 (10:17→18:05)
[2022-04-13] MEDS: Sacubitril 49 MG/Valsartan 51 MG TABLET PO SCH ×2 (10:18→22:15)
[2022-04-13] MEDS: Digoxin 0.125 MG TAB PO SCH (10:18)
[2022-04-13] MEDS: Apixaban 5 MG TAB PO SCH (10:18)
[2022-04-13] MEDS: Aspirin 81 mg Enteric Coated Tablet PO SCH (10:18)
[2022-04-13] MEDS: Acetaminophen 325 MG TAB PO PRN (10:19)
[2022-04-13] MEDS: Lidocaine 5% Patch TD SCH (10:20)
[2022-04-13] MEDS: Lorazepam 1 MG TAB PO PRN (10:20)
[2022-04-13] MEDS: Fluticasone Propionate Nasal Spray 16 gm Bottle NASAL SCH (10:40)
[2022-04-13] MEDS: Chlorhexidine Gluconate 15 ML UDCUP SSP SCH ×2 (10:40→22:10)
[2022-04-13] MEDS: Diclofenac 1% 100 GM GEL TP SCH ×4 (10:55→22:14)
[2022-04-13] MEDS: Famotidine/PF 20 mg/2ml Vial SLOW IVP SCH ×2 (10:56→22:04)
[2022-04-13] MEDS: Sodium Chloride 0.65% Nasal 44 ML BOT EA NARE SCH (10:56)
[2022-04-13] MEDS ORDERED: Cyclobenzaprine 10 MG TAB PO SCH (11:00)
[2022-04-13] MEDS ORDERED: Cepastat Lozenges 1 LOZ PO PRN (12:13)
[2022-04-13] MEDS: Nicotine 21 MG PATCH TD SCH (18:05)
[2022-04-13] MEDS: Transdermal Patch Removal TOP SCH (22:15)
[2022-04-14 07:38] VITALS: BP 107/60; TEMP 97.7
[2022-04-14] MEDS: Mometasone/Formoterol 60 PUFF AER INH SCH (08:08)
[2022-04-14] MEDS: Carvedilol 6.25 MG TAB PO SCH (08:48)
[2022-04-14] MEDS: Chlorhexidine Gluconate 15 ML UDCUP SSP SCH (08:48)
[2022-04-14] MEDS: Lidocaine 5% Patch TD SCH (08:48)
[2022-04-14] MEDS: Aspirin 81 mg Enteric Coated Tablet PO SCH (08:49)
[2022-04-14] MEDS: Digoxin 0.125 MG TAB PO SCH (08:49)
[2022-04-14] MEDS: Sacubitril 49 MG/Valsartan 51 MG TABLET PO SCH (08:49)
[2022-04-14] MEDS: Sodium Chloride 0.65% Nasal 44 ML BOT EA NARE SCH (08:50)
[2022-04-14] MEDS: Fluticasone Propionate Nasal Spray 16 gm Bottle NASAL SCH (08:50)
[2022-04-14] MEDS: Diclofenac 1% 100 GM GEL TP SCH (08:51)
[2022-04-14] MEDS: Famotidine/PF 20 mg/2ml Vial SLOW IVP SCH (08:52)
[2022-04-14] MEDS ORDERED: Empagliflozin 25 MG TAB PO SCH (09:00)
[2022-04-14] MEDS ORDERED: SILDENAFIL CITRATE 100 MG PO SCH (09:00)
[2022-04-14] MEDS ORDERED: Loratadine 10 MG TAB PO SCH (09:00)
[2022-04-14] MEDS ORDERED: Niacin 500 MG TAB PO SCH (09:00)
[2022-04-14] MEDS ORDERED: Atorvastatin Calcium 40 MG TAB PO SCH (09:00)
[2022-04-14] MEDS ORDERED: Rivaroxaban 10 MG TAB PO SCH (09:00)
== END 2022-04-14 11:25 | DRG 64 ==
LOC: CSHERS 13:43 → CSHTELE 22:29
PROVIDERS: ADMIT Family Medicine; ATTEND Family Medicine
DX: I63.9 Cerebral infarction, unspecified (principal); G93.41 Metabolic encephalopathy; G93.6 Cerebral edema; I50.23 Acute on chronic systolic (congestive) heart failure; G81.91 Hemiplegia, unspecified affecting right dominant side; I47.2 Ventricular tachycardia; I48.20 Chronic atrial fibrillation, unspecified; J98.11 Atelectasis; F03.91 Unspecified dementia, unspecified severity, with behavioral disturbance; F05 Delirium due to known physiological condition; Z20.822 Contact with and (suspected) exposure to COVID-19; E78.5 Hyperlipidemia, unspecified; D69.6 Thrombocytopenia, unspecified; I65.21 Occlusion and stenosis of right carotid artery; I11.0 Hypertensive heart disease with heart failure; R47.01 Aphasia; I25.5 Ischemic cardiomyopathy; E83.42 Hypomagnesemia; E87.6 Hypokalemia; R91.1 Solitary pulmonary nodule; R29.705 NIHSS score 5; Z82.3 Family history of stroke; Z82.49 Family history of ischemic heart disease and other diseases of the circulatory system; Z95.0 Presence of cardiac pacemaker; Z79.899 Other long term (current) drug therapy; Z79.82 Long term (current) use of aspirin; Z79.01 Long term (current) use of anticoagulants; Z88.6 Allergy status to analgesic agent; Z87.891 Personal history of nicotine dependence; Z78.1 Physical restraint status
CPT/HCPCS: 36415; 36416; 70450; 70496; 70498; 71045; 71260; 80048; 80053; 80061; 80076; 80162; 80306; 80307; 81003; 81015; 82140; 82550; 82607; 83036; 83605; 83690; 83735; 83880; 84443; 84484; 85025; 85610; 85730; 86780; 87040; 87086; 93005; 93306; 93880; 94640; 94664; 94760; 95816; 95819; 95957; 96374; 96376; C9254; J0696; J1630; J1650; J1953; J2060; J2250; J2405; J3360; J3475; J3486; J3490; J7042; J7620; Q9967; S0028; U0003; U0005

== ENCOUNTER 2022-11-04 21:07 | Emergency (ER) | payer OTHER ==
[~2022-11-04 21:07] MED LIST: Fentanyl 100 MCG/2 ML VIAL ONE; PROPOFOL 20 ML ONE
[2022-11-04] MEDS ORDERED: Fentanyl 100 MCG/2 ML VIAL ONE ×2 (22:08→22:18)
[2022-11-04] MEDS ORDERED: ePHEDrine Sulfate 50 MG/10 ML VIAL ONE (22:16)
== END 2022-11-04 21:47 ==
LOC: CSHERS 21:07
DX: T18.128A Food in esophagus causing other injury, initial encounter (principal); I48.91 Unspecified atrial fibrillation; I10 Essential (primary) hypertension; Z79.899 Other long term (current) drug therapy
CPT/HCPCS: 99284; J2704; J3010